=== PATIENT | female | born 1970 | race Caucasian/White ===

== ENCOUNTER 2020-04-30 14:20 | Outpatient (CLI) | payer OTHER | END 2020-04-30 23:59 | disposition home or self-care (01) | LOC: CFH 14:20 | PROVIDERS: ATTEND Obstetrics & Gynecology Gynecology | DX: R92.1 Mammographic calcification found on diagnostic imaging of breast (principal) | CPT/HCPCS: 76642; 77066; G0279 ==

== ENCOUNTER → 2020-11-09 | Outpatient (CLI) | payer OTHER | END | disposition home or self-care (01) | LOC: CFH 07:34 | PROVIDERS: ATTEND Obstetrics & Gynecology Gynecology | DX: R92.1 Mammographic calcification found on diagnostic imaging of breast (principal); N63.20 Unspecified lump in the left breast, unspecified quadrant | CPT/HCPCS: 77061; 77065; G0279 ==